=== PATIENT | male | born 2000 | race Hispanic/Latino ===

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

== ENCOUNTER 2021-08-28 23:56 | Emergency (ER) | payer OTHER ==
[2021-08-28 23:58] VITALS: BP 136/79
[2021-08-29] MEDS ORDERED: KETOROLAC 60 MG VIAL (30MG/ML) IM ONE (00:30)
[2021-08-29] MEDS ORDERED: TRAM50TA2 PO (01:11)
== END 2021-08-29 01:31 | disposition home or self-care (01) ==
LOC: EDH 23:56
DX: S99.912A Unspecified injury of left ankle, initial encounter (principal); Z79.1 Long term (current) use of non-steroidal anti-inflammatories (NSAID); Z88.5 Allergy status to narcotic agent; X50.1XXA Overexertion from prolonged static or awkward postures, initial encounter; Y93.83 Activity, rough housing and horseplay; Y92.89 Other specified places as the place of occurrence of the external cause; Y99.8 Other external cause status
CPT/HCPCS: 73610; 96372; 99283; J1885

== ENCOUNTER 2023-01-26 22:59 | Emergency (ER) | payer OTHER ==
[~2023-01-26] VITALS: Ht 175.3 cm; Wt 68.0 kg
[~2023-01-26 22:59] MED LIST: TRAM50TA2 PO
[2023-01-26 23:11] VITALS: TEMP 99
[2023-01-26] MEDS ORDERED: IBUPROFEN 800 MG TAB PO ONE (23:30)
[2023-01-27] MEDS ORDERED: IBUP-1493 PO (02:07)
[2023-01-27 02:15] VITALS: BP 133/64; PULSE 96; RESP 18; O2SAT 100
== END 2023-01-27 02:21 | disposition home or self-care (01) ==
LOC: EDH 22:59
DX: M25.572 Pain in left ankle and joints of left foot (principal); M79.89 Other specified soft tissue disorders; Z98.890 Other specified postprocedural states; Z88.5 Allergy status to narcotic agent
CPT/HCPCS: 73610; 73630